=== PATIENT | female | born 1940 | race Caucasian/White ===

== ENCOUNTER → 2017-06-22 | Outpatient (CLI) | payer MEDICARE, BC ==
[2017-06-22 10:41] LABS: Basophils # (A) 0.1 k/uL (0-0.2); Basophils % (A) 1 %; CH 31.2; CHCM 32.7; Eosinophils # (A) 0.2 k/uL (0-0.7); Eosinophils % (A) 3 %; HCT 43.6 % (34.0-46.0); HDW 2.45; HGB 13.5 gm/dL (11.4-16.0); Luc % (Auto) 3; Lymphocytes # (A) 2.7 k/uL (1.0-4.8); Lymphocytes % (A) 37 %; MCH 29.8 pg (25.0-35.0); MCHC 31.1 g/dL (31.0-37.0); MCV 95.9 fL (80.0-100.0); Mean Platelet Volume 7.4; Monocytes # (A) 0.5 k/uL (0-1.0); Monocytes % (A) 6 %; Neutrophils # (A) 3.6 k/uL (1.3-7.7); Neutrophils % (A) 50 %; RBC 4.54 m/uL (3.80-5.40); RDW 13.3 % (11.5-15.5); WBC 7.1 k/uL (3.8-10.6); WBC (Perox) 7.37
[2017-06-22 10:46] LABS: ALT 29 U/L (9-52); AST 21 U/L (14-36); Alkaline Phosphatase 85 U/L (38-126); Anion Gap 7 mmol/L; Blood Urea Nitrogen 12 mg/dL (7-17); Calcium 10.3 mg/dL (8.4-10.2); Carbon Dioxide 31 mmol/L (22-30); Chloride 101 mmol/L (98-107); Cholesterol 193 mg/dL (<200); Glucose 99 mg/dL (74-99); HDL Cholesterol 84 mg/dL (40-60); Non-African American GFR(MDRD) >60 (>60 ml/min/1.73 sqM); Potassium 4.1 mmol/L (3.5-5.1); Sodium 139 mmol/L (137-145); Total Bilirubin 0.4 mg/dL (0.2-1.3); Total Protein 7.3 g/dL (6.3-8.2)
== END | disposition home or self-care (01) ==
LOC: LABWHC1 10:05
PROVIDERS: ATTEND Family Medicine
DX: I10 Essential (primary) hypertension (principal); E78.2 Mixed hyperlipidemia
CPT/HCPCS: 36415; 80053; 80061; 85025

== ENCOUNTER → 2018-04-13 | Outpatient (CLI) | payer MEDICARE, BC ==
--- NOTE | 2018-04-13 16:45 | US ---
EXAMINATION TYPE: US pelvis complete transvag DATE OF EXAM: 04/13/2018 COMPARISON: NONE CLINICAL HISTORY: 77-year-old female Abdominal Pain R10.9, bloating, feeling of fullness TECHNIQUE: Transabdominal sonographic images of the pelvis were acquired. Transvaginal sonographic i mages were medically necessary to better assess the following anatomy: uterus and ovaries Date of LMP: 24 years prior FINDINGS: EXAM MEASUREMENTS: Uterus: 4.9 x 2.4 x 3.5 cm Endometrial Stripe: 0.4 cm Right Ovary: not clearly identified, cyst seen in right adnexa possibly ovarian etiology. Left Ovary: not visualized due to atrophy/overlying bowel Sonography notes: Patient of large body habitus. 1. Uterus: Retroverted, heterogeneous, unable to adequately image the uterus transvaginally due to u terine position. 2. Endometrium: wnl 3. Right Ovary: Right adnexal cyst identified in post menopausal patient measuring 4.4 x 3.8 x 3.6cm . There is a thin internal septation. No internal nodularity identified. 4. Left Ovary: not visualized due to atrophy/overlying bowel 5. Bilateral Adnexa: right cyst seen 6. Posterior cul-de-sac: wnl IMPRESSION: Neither ovary could be clearly identified. There is a cystic lesion in the right adnexa probably of o varian origin measuring 4.4 cm containing a thin internal septation. Recommend 3-6 month initial foll ow-up interval. If stable at that time, annual surveillance can be performed per consensus guidelines .
--- NOTE | 2018-04-13 17:07 | US ---
EXAMINATION TYPE: US abdomen complete DATE OF EXAM: 04/13/2018 COMPARISON: None CLINICAL HISTORY: 77-year-old female Abdominal Pain R10.9, abdominal bloating, feeling of fullness FINDINGS: EXAM MEASUREMENTS: Liver Length: 16.1 cm Gallbladder Wall: 0.3 cm CBD: 0.4 cm Spleen: 8.1 cm Right Kidney: 10.2 x 3.4 x 5.2 cm Left Kidney: 9.7 x 4.8 x 4.7cm Skin Carver notes: Patient of large body habitus, technically difficult exam. Pancreas: Head partially obscured by overlying bowel gas Liver: Cyst seen on previous CT not seen by today's ultrasound, this could be due to technical limita tions Gallbladder: A couple nonmobile echogenic foci measuring 3 mm Evidence for sonographic De Oliveira's sign: no CBD: wnl Spleen: wnl Right Kidney: upper pole obscured by overlying bowel gas Left Kidney: upper pole obscured by overlying bowel gas No hydronephrosis on either side. Upper IVC: wnl Abd Aorta: wnl IMPRESSION: A couple nonmobile echogenic foci in the gallbladder measuring 3 mm suggestive of gallbladder wall po lyps. A 6 month follow-up can be considered as a conservative measure. Otherwise, some exam limitations; no specific abnormality seen.
== END | disposition home or self-care (01) ==
LOC: RADUSWWP 08:46
PROVIDERS: ATTEND Family Medicine
DX: N83.8 Other noninflammatory disorders of ovary, fallopian tube and broad ligament (principal); R93.5 Abnormal findings on diagnostic imaging of other abdominal regions, including retroperitoneum
CPT/HCPCS: 76700; 76830; 76856

== ENCOUNTER 2018-07-20 09:27 | Day surgery (SDC) | payer MEDICARE, BC ==
[2018-07-18 08:49] VITALS: BMI 32.5
[~2018-07-20 09:27] MED LIST: LACTATED RINGERS 1,000 ML IV SCH; LIDOCAINE 1% 20 ML VIAL (10MG/ML) FOR IV START INTRADERMA PRN
--- NOTE | 2018-07-20 10:12 | P.GSHP ---
History of Present Illness H&P Date: 07/20/18 CHIEF COMPLAINT: GERD HISTORY OF PRESENT ILLNESS: The patient is a 77-year-old female who presents reports gastroesophageal reflux disease. Upper endoscopy was offered for further evaluation and management. PAST MEDICAL HISTORY: Please see list. PAST SURGICAL HISTORY: Please see list. MEDICATIONS: Please see list. ALLERGIES: Please see list. SOCIAL HISTORY: No illicit drug use FAMILY HISTORY: No reports of Crohn disease or ulcerative colitis. REVIEW OF ORGAN SYSTEMS: CONSTITUTIONAL: No reports of fevers or chills. GI: Denies any blood in stools or constipation. PHYSICAL EXAM: VITAL SIGNS: Stable GENERAL: Well-developed and pleasant in no acute distress. HEENT: No scleral icterus. Extraocular movements grossly intact. Moist buccal mucosa. NECK: Supple without lymphadenopathy. CHEST: Unlabored respirations. Equal bilateral excursions. CARDIOVASCULAR: Regular rate and rhythm. Distal 2+ pulses. ABDOMEN: Soft, nondistended. MUSCULOSKELETAL: No clubbing, cyanosis, or edema. ASSESSMENT: 1. Gastroesophageal reflux disease PLAN: 1. Recommend proceeding with an upper endoscopy Past Medical History Past Medical History: Hyperlipidemia, Hypertension, Osteoarthritis (OA) Additional Past Medical History / Comment(s): BACK PAIN, ENVIRONMENTAL ALLERGIES., STATES HAVING STOMACH PAIN AFTER EATING. History of Any Multi-Drug Resistant Organisms: None Reported Past Surgical History: Joint Replacement, Orthopedic Surgery, Tubal Ligation Additional Past Surgical History / Comment(s): BILAT CATARACT SURGERY, CARPAL TUNNEL. LT CORNEAL TRANSPLANT X2. COLONOSCOPY. RT TKA. LT PARTIAL ROBIN Past Anesthesia/Blood Transfusion Reactions: No Reported Reaction Past Psychological History: No Psychological Hx Reported Smoking Status: Never smoker Past Alcohol Use History: None Reported Past Drug Use History: None Reported - Past Family History Mother Family Medical History: Unable to Obtain Additional Family Medical History / Comment(s): PT DOES NOT KNOW FAMILY HX. Medications and Allergies Home Medications Medication Instructions Recorded Confirmed Type Diltiazem HCl [Diltiazem ER (BID)] 90 mg PO BID 12/09/13 07/18/18 History Lisinopril-Hctz 20-25 mg 1 each PO DAILY 12/09/13 07/18/18 History [Zestoretic 20-25] Atorvastatin [Lipitor] 10 mg PO HS 07/18/18 07/18/18 History Cetirizine HCl 10 mg PO HS PRN 07/18/18 07/18/18 History HYDROcodone/APAP 5-325MG [[place] 1 tab PO Q6HR PRN 07/18/18 07/18/18 History 5-325] Inulin/Chromium Picolinate [Fiber 2 each PO DAILY 07/18/18 07/18/18 History Gummies Chew] Loratadine 10 mg PO DAILY PRN 07/18/18 07/18/18 History Sinus Otc 1 tab PO DAILY PRN 07/18/18 History Sodium Chloride 5% Ophth Soln 1 drops RIGHT EYE BID 07/18/18 07/18/18 History [Jose Angel 128] prednisoLONE ACETATE 1% OPHTH 1 drops LEFT EYE DIRECTED 07/18/18 07/18/18 History [Pred Forte 1%] Allergies Allergy/AdvReac Type Severity Reaction Status Date / Time Iodinated Contrast- Oral and AdvReac Nausea & Verified 07/18/18 08:19 IV Dye Vomiting [Iodinated Contrast Media - IV Dye]
[2018-07-20 10:54] VITALS: TEMP 98.4
[2018-07-20] MEDS ORDERED: PROPOFOL 10 MG/ML 20 ML VIAL IV ONE (12:16)
[2018-07-20] MEDS ORDERED: LIDOCAINE 1% INJ 10MG/ML (20 ML MDV) ONE (12:16)
--- NOTE | 2018-07-20 12:32 | P.PCN ---
Date of Procedure: 07/20/18 Description of Procedure: PREOPERATIVE DIAGNOSIS: Gastroesophageal reflux disease. POSTOPERATIVE DIAGNOSIS: Gastritis. Gastroesophageal reflux disease. Diaphragmatic hiatal hernia OPERATION: Esophagogastroduodenoscopy with biopsies along antrum. SURGEON: Eloisa Bennett MD ANESTHESIA: MAC. INDICATIONS: The patient is a 77-year-old female who presents with a history of reflux disease. Benefits and risks of the procedure were described. Informed consent was obtained. DESCRIPTION: The patient was brought into the endoscopy suite and laid in the left lateral decubitus position. An Olympus gastroscope was passed along the posterior oropharynx down to the distal esophagus where the squamocolumnar junction was encountered at 36 cm from the incisors. The stomach was entered and no bile reflux was found. Additional findings are listed below. Biopsies with cold forceps were obtained of the antrum. The first through third portion of the duodenum was examined and unremarkable. Retroflexion of the scope confirmed Hill grade 4 lower esophageal valve. The squamocolumnar junction demonstrated LA grade A erosive esophagitis. The stomach was desufflated. The patient tolerated the procedure well. FINDINGS: Squamocolumnar junction 36 cm from the incisors. Diaphragmatic hiatus at 40 cm. Hiatal hernia, 4 cm Hill grade 4 lower esophageal valve. LA grade A erosive esophagitis. No active duodenitis. Mild superficial chronic gastritis RECOMMENDATIONS: Upper endoscopy as needed.
[2018-07-20 12:37] VITALS: RESP 16
[2018-07-20 12:51] VITALS: BP 164/79; PULSE 75
== END 2018-07-20 13:04 | disposition home or self-care (01) ==
LOC: ORWHC2ENDO 09:27
PROVIDERS: ATTEND Surgery Plastic and Reconstructive Surgery
DX: K29.30 Chronic superficial gastritis without bleeding (principal); K21.0 Gastro-esophageal reflux disease with esophagitis; K22.10 Ulcer of esophagus without bleeding; K44.9 Diaphragmatic hernia without obstruction or gangrene; E78.5 Hyperlipidemia, unspecified; I10 Essential (primary) hypertension; M19.90 Unspecified osteoarthritis, unspecified site; M54.9 Dorsalgia, unspecified; Z96.651 Presence of right artificial knee joint; Z96.642 Presence of left artificial hip joint; Z94.7 Corneal transplant status; Z79.899 Other long term (current) drug therapy; Z91.041 Radiographic dye allergy status; Z88.1 Allergy status to other antibiotic agents
CPT/HCPCS: 88305; 88342; 43239; J2001; J2704

== ENCOUNTER → 2020-04-11 | Outpatient (CLI) | payer MEDICARE, BC ==
[2020-04-11 14:34] LABS: ALT 13 U/L (4-34); AST 24 U/L (14-36); African American GFR (CKD) >90 (>60 ml/min/1.73 sqM); Albumin 4.3 g/dL (3.5-5.0); Alkaline Phosphatase 115 U/L (38-126); Anion Gap 7 mmol/L; Blood Urea Nitrogen 14 mg/dL (7-17); Carbon Dioxide 29 mmol/L (22-30); Chloride 101 mmol/L (98-107); Glucose 99 mg/dL (74-99); Non-African American GFR(CKD) 81 (>60 ml/min/1.73 sqM); Potassium 4.1 mmol/L (3.5-5.1); Sodium 137 mmol/L (137-145); Total Bilirubin 0.5 mg/dL (0.2-1.3); Total Protein 6.8 g/dL (6.3-8.2)
[2020-04-11 14:44] LABS: INR 0.9 (<1.2); Partial Thromboplastin Time 22.5 sec (22.0-30.0); Prothrombin Time 9.7 sec (9.0-12.0)
[2020-04-11 14:48] LABS: Appearance,Urine Clear (Clear); Bilirubin,Urine Negative (Negative); Blood,Urine Negative (Negative); Color,Urine Yellow; Glucose,Urine (UA) Negative (Negative); Ketones,Urine Negative (Negative); Leukocyte Esterase,Urine Moderate (Negative); Mucus,Urine Rare /hpf; Nitrite,Urine Negative (Negative); PH, Urine 6.5 (5.0-8.0); Protein,Urine Negative (Negative); RBC,Urine 2 /hpf (0-5); Specific Gravity,Urine 1.016 (1.001-1.035); Squamous Epithelial Cell,Urine 1 /hpf (0-4); Urobilinogen,Urine <2.0 mg/dL (<2.0); WBC,Urine 10 /hpf (0-5)
[2020-04-11 15:02] LABS: HCT 41.3 % (34.0-46.0); HGB 13.1 gm/dL (11.4-16.0); MCHC 31.9 g/dL (31.0-37.0); MCV 94.3 fL (80.0-100.0); Mean Platelet Volume 9.1; Platelet Count 282 k/uL (150-450); RBC 4.38 m/uL (3.80-5.40); RDW 13.4 % (11.5-15.5); WBC 8.2 k/uL (3.8-10.6)
== END | disposition home or self-care (01) ==
LOC: LABPAT 13:08
PROVIDERS: ATTEND Orthopaedic Surgery
DX: Z01.812 Encounter for preprocedural laboratory examination (principal); Z01.818 Encounter for other preprocedural examination
CPT/HCPCS: 80053; 81001; 85027; 85610; 85730; 87070

== ENCOUNTER 2020-04-22 10:48 | Day surgery (SDC) | payer MEDICARE, BC ==
[2020-04-16 16:22] VITALS: BMI 32.2
[~2020-04-22 10:48] MED LIST changes: +ACETAMINOPHEN TAB 500 MG TAB PO ONE; +DEXAMETHASONE SOD PHOSPHATE 10 MG/ML 1 ML VIAL IV ONE; +GABAPENTIN 300 MG CAP PO ONE; +HYDROmorphone 0.5 MG/0.5 ML SYRINGE IVP PRN; -LIDOCAINE 1% 20 ML VIAL (10MG/ML) FOR IV START INTRADERMA PRN; +MELOXICAM 7.5 MG TAB PO ONE; +MIDAZOLAM 2 MG/2 ML VIAL IV PRN; +ONDANSETRON 4 MG/2 ML VIAL IVP ONE; +TRANEXAMIC ACID 1,000 MG in SODIUM CHLORIDE 0.9% 100 ML IVPB ONE
[2020-04-22] MEDS ORDERED: LIDOCAINE 1% (10MG/ML) FOR IV START INTRADERMA ONE (11:32)
[2020-04-22] MEDS ORDERED: ROPIVACAINE 0.2%-NS ON-Q PUMP 1,090 MG, EMPTY PAIN BALL 1 EACH MISCELLANE PRN (12:07)
--- NOTE | 2020-04-22 12:09 | P.ANPRN ---
Procedure Note - Anesthesia - Nerve Block Performed Left Adductor Canal Infusion Time Out Performed: Yes Date of Procedure: 04/22/20 Procedure Start Time: 11:46 Procedure Stop Time: 11:55 Location of Patient: PreOp Indication: Acute Post-Operative Pain, Requested by Surgeon Sedation Type: Sedate with meaningful contact maintained Preparation: Sterile Prep, Sterile Dressing Position: Supine Catheter: Indwelling Needle Types: Pajunk Needle Gauge: 21 Ultrasound used to visualize needle placement: Yes Ultrasound used to observe medication spread: Yes Blood Aspirated: No Pain Paresthesia on Injection Noted: No Resistance on Injection: Normal Image Stored and Saved: Yes Events: Uneventful and Well Tolerated (ropi .5% 20cc plus dexamethasone 4mg)
[2020-04-22] MEDS ORDERED: MIDAZOLAM 2 MG/2 ML VIAL ONE (12:31)
[2020-04-22] MEDS ORDERED: TRANEXAMIC ACID 1,000 MG/10 ML VIAL ONE (12:31)
[2020-04-22] MEDS ORDERED: PROPOFOL 10 MG/ML 20 ML VIAL IV ONE (12:31)
[2020-04-22] MEDS ORDERED: SODIUM CHLORIDE 0.9% 100 ML BAG ONE (12:31)
[2020-04-22] MEDS ORDERED: ceFAZolin 3,000 MG in SODIUM CHLORIDE 0.9% IRRIGATIO 3,000 ML IRRIGATION ONE (12:34)
[2020-04-22] MEDS: ROPIVACAINE 246.25 MG, EPINEPHrine 0.5 MG, KETOROLAC 30 MG, cloNIDine HCL/PF 80 MCG, WA... MISCELLANE ONE ×10 (13:05→13:42)
[2020-04-22] MEDS ORDERED: LACTATED RINGERS 1,000 ML IV ONE (13:26)
--- NOTE | 2020-04-22 14:18 | P.OP ---
Date of Procedure: 04/22/20 Procedure(s) Performed: PREOPERATIVE DIAGNOSIS: Left knee severe osteoarthritis with genu varum POSTOPERATIVE DIAGNOSIS: Left knee severe osteoarthritis with genu varum OPERATION: Left knee cemented total replacement arthroplasty. ANESTHESIA: Spinal ESTIMATED BLOOD LOSS: 100 ml. CLOTH LAYER: Sharla Perez PA-C (assistance with: patient positioning, retraction, exposure, hemostasis, leg positioning, implantation, irrigation, closure, dressing) COMPLICATIONS: None apparent. COMPONENTS IMPLANTED: Persona system from [employer] INDICATIONS: Mrs. Michel is a 79 year old female with a history of left knee osteoarthritis. Conservative treatment has been tried and has been unsuccessful in controlling symptoms adequately. The operation of knee replacement has been discussed at length in the office, as well as potential risks and complications. These are inclusive of, but not limited to: bleeding, infection, scarring, discomfort, blood vessel and nerve damage, need for further surgery, failure to relieve symptoms, persistence, recurrence, or worsening of problems, loosening, dislocation, wear, blood clot, pulmonary embolism, , gait dysfunction, stiffness, and other risks as discussed in the office. The patient elects to proceed and the consent form has been signed. PROCEDURE: The patient was taken to the operating room and positioned on the operating room table in the supine position. Anesthesia was initiated. Care was taken to make sure that all pressure points were adequately padded. The operative lower extremity was prepped and draped in the usual aseptic fashion using ChloraPrep. Ioban drape was used for the case and the patient received intravenous antibiotics within one hour of the incision. A pneumotourniquet and leg haddad were used for the case. The limb was exsanguinated with an Esmarch bandage and the tourniquet was inflated to 350 mmHg. Time-out was called confirming the patient's identity, side, procedure and administration of antibiotics and tranexamic acid, 1 g IV. The incision was then created midline directly over the knee, carried down through skin and into the subcutaneous tissues and down to fascia. Full thickness subcutaneous medial flap was developed. Medial parapatellar arthrotomy was performed and the interior of the knee was inspected. There was end-stage osteoarthritis of the knee with a mild to moderate genu varum type deformity. The fat pad was excised and proximal medial release on the tibia was completed using meticulous dissection and a curved osteotome. The anterior cruciate ligament was taken down. Note was made of significant attrition of the anterior and significant degenerative appearance of the posterior cruciate ligaments. The exposure was excellent. The knee was flexed 90 degrees and the patella was everted. A spot was chosen on the femur approximately 1 cm anterior to the posterior cruciate ligament insertion and an intramedullary hole was created within the femur. The intramedullary guide was then set to 5 degrees of valgus. The distal cutting block was attached and pinned into position. An appropriate amount of distal femoral resection was set. The oscillating saw was then used to make the distal femoral cut. This cut was confirmed to be flat with the flat end of an osteotome. The retractors were placed around the tibia and the tibial surface was addressed. The angle and depth of resection was adjusted using an extramedullary cutting guide. The guide had a built-in 3 degree posterior slope cut. Once the cutting guide was adjusted appropriately and in line with the axis of the tibia and confirmed to be in good position in relation to the second metatarsal and transmalleolar axis, the tibial cut was then created with protection of the posterior neurovascular structures and the collateral ligaments. The tibial cut surface was removed and sized. Femoral sizing was then accomplished using anterior referencing. Care was taken to analyze the posterior condyles for signs of deficiency or severe wear, and adjustments to the guide were made, as appropriate. 3 degree external rotation pins were placed. The cutting jig for the femur was applied to these pins. The planned cuts were further analyzed prior to performing them with the oscillating saw. No femoral notching was produced. Bone fragments were removed and the cut surfaces were finished, as necessary, with a reciprocating saw. Spacer block technique was then used to confirm that the flexion and extension gaps were equal. Soft tissue releases and adjustment of the tibial and/or femoral cuts were made, as necessary, until the gaps were equal. This included release of the posterior cruciate ligament, which was tight in this patient. The femur was then further finished for a posterior cruciate ligament substituting component. Patellar resurfacing was performed using a reamer. The size of the required patellar component was estimated and the patellar surface was then reamed down to a residual thickness which would recreate the [place] thickness with the component. The exact placement of the patellar component was adjusted for position based on preoperative x-rays and intraoperative findings. Prior to placing trial components, anesthetic solution consisting of ropivicaine with epinephrine, ketorolac, and clonidine was injected carefully and methodically in a grid pattern using aspiration technique into the soft tissue around the knee circumferentially, starting with the deeper tissues first and progressing to fascia, and then finally the skin/subcutaneous tissue. Particular care was taken when injecting the posterior capsule. The trial components were inserted. The tibial tray was allowed to self center and the patella was noted to track very well. The position of the tibial component was marked and the tibia was then finished for a stemmed tibial component. Cement was mixed on the back table and applied to the final components. Trial components were removed and the cut surfaces of the bone were pulse lavaged thoroughly and dried. Cement was then applied to the tibial jordan face and pressurized into the surface using finger pressurization technique. The tibial component was then applied and excess cement was removed after it was impacted securely and noted to be flush with the cut surface. In similar fashion, the cement was applied to the cut femoral surface, pressurized in using finger pressurization and the component was impacted into place. Excess cement was removed. The polyethylene spacer was then implanted and locked into position. The patellar component was then applied in similar technique and a patellar clamp was used to hold the patella in place as the cement hardened. Once the cement had fully hardened, the knee was reinspected. Any other cement extrusion was removed and final kinematic testing showed range of motion from 0 to 130 degrees with excellent stability, both medially and laterally and appropriate alignment of the leg. Patellar tracking was excellent. The knee was then thoroughly pulse lavaged with normal saline. The tourniquet wa s deflated and hemostasis was obtained with electrocautery and IV tranexamic acid, 1 g given prior to inflation of the tourniquet and another gram given at the time of closure. Closure was with #2 Ethibond in the fascia and supplemented with #2 Quill, 2-0 Vicryl suture was used for the subcutaneous tissues and 3-0 Quill for the skin. Dermabond/Steri-Strips were then applied. A lightly compressive dressing was applied using Webril and an Chele wrap. The patient was then transferred to stretcher and taken to the recovery room in stable condition. Sponge and needle counts were correct.
[2020-04-22] MEDS ORDERED: ONDANSETRON 4 MG/2 ML VIAL IVP PRN (14:36)
[2020-04-22] MEDS ORDERED: NA PHOS,M-B/NA PHOS,DI-BA 133 ML ENEMA RECTAL PRN (14:36)
[2020-04-22] MEDS ORDERED: TEMAZEPAM 15 MG CAP PO PRN (14:36)
[2020-04-22] MEDS ORDERED: HYDROcodone/APAP 7.5-325MG 1 EACH TAB PO PRN (14:36)
[2020-04-22] MEDS ORDERED: NALOXONE 0.4 MG/ML 1 ML VIAL IV PRN (14:36)
[2020-04-22] MEDS ORDERED: HYDROmorphone 0.5 MG/0.5 ML SYRINGE IVP PRN ×3 (14:36)
[2020-04-22] MEDS ORDERED: bisacodyL 10 MG SUPP RECTAL PRN (14:36)
[2020-04-22] MEDS ORDERED: hydrOXYzine pamoate 25 MG CAP PO PRN (14:36)
[2020-04-22] MEDS ORDERED: MAGNESIUM HYDROXIDE 2,400 MG/10 ML CUP PO PRN (14:36)
[2020-04-22] MEDS ORDERED: HYDROcodone/APAP 5-325MG 1 EACH TAB PO PRN (14:36)
[2020-04-22] MEDS ORDERED: LACTATED RINGERS 1,000 ML IV SCH (14:45)
--- NOTE | 2020-04-22 15:01 | XR ---
EXAMINATION TYPE: XR knee limited LT DATE OF EXAM: 04/22/2020 CLINICAL HISTORY: Left knee pain and arthritis status post total knee replacement. TECHNIQUE: Portable AP and crosstable lateral views of the left knee are obtained immediately postop eratively. COMPARISON: None FINDINGS: Metallic hardware from total left knee arthroplasty is seen and appears satisfactory in al ignment and position. There is evidence of recent surgery with diffuse subcutaneous gas and cutaneou s irregularity. There is no unexpected radiopaque foreign body. IMPRESSION: METALLIC HARDWARE FROM TOTAL LEFT KNEE ARTHROPLASTY IS SATISFACTORY IN ALIGNMENT.
[2020-04-22] MEDS ORDERED: KETOROLAC 15 MG/ML 1 ML VIAL IVP ONE (15:29)
[2020-04-22 16:30] VITALS: RESP 18
[2020-04-22 17:24] VITALS: BP 144/72; PULSE 103; TEMP 97.5
[2020-04-22] MEDS ORDERED: ASPIRIN 81 MG PO SCH (21:00)
[2020-04-22] MEDS ORDERED: SODIUM CHLORIDE 5% OPHTH DROPS 15 ML BTL RIGHT EYE SCH (21:00)
[2020-04-22] MEDS ORDERED: SENNOSIDES-DOCUSATE SODIUM 1 EACH TAB PO SCH (21:00)
[2020-04-22] MEDS ORDERED: ATORVASTATIN 10 MG TAB PO SCH (21:00)
[2020-04-22] MEDS ORDERED: DILTIAZEM ORAL 30 MG TAB PO SCH (21:00)
[2020-04-23] MEDS ORDERED: MELOXICAM 7.5 MG TAB PO SCH (09:00)
[2020-04-23] MEDS ORDERED: LISINOPRIL-HCTZ 20-25 MG 1 EACH TAB PO SCH (09:00)
[2020-04-24] MEDS ORDERED: prednisoLONE ACETATE 1% OPHTH DROPS 5 ML BTL LEFT EYE SCH (09:00)
== END 2020-04-22 17:42 | disposition home health service (06) ==
LOC: OR 10:48 → 4SSUR 16:11 → OR 17:42
PROVIDERS: ATTEND Orthopaedic Surgery
DX: M17.12 Unilateral primary osteoarthritis, left knee (principal); M21.162 Varus deformity, not elsewhere classified, left knee; I10 Essential (primary) hypertension; E78.2 Mixed hyperlipidemia; K57.90 Diverticulosis of intestine, part unspecified, without perforation or abscess without bleeding; Z97.3 Presence of spectacles and contact lenses; Z91.041 Radiographic dye allergy status; J30.2 Other seasonal allergic rhinitis; Z96.651 Presence of right artificial knee joint; Z98.51 Tubal ligation status; Z98.42 Cataract extraction status, left eye; Z98.41 Cataract extraction status, right eye; Z98.890 Other specified postprocedural states; K21.9 Gastro-esophageal reflux disease without esophagitis; K44.9 Diaphragmatic hernia without obstruction or gangrene; Z96.642 Presence of left artificial hip joint; Z83.1 Family history of other infectious and parasitic diseases; Z79.51 Long term (current) use of inhaled steroids; Z79.899 Other long term (current) drug therapy; Z88.1 Allergy status to other antibiotic agents
CPT/HCPCS: 64448; 76942; 88300; 73560; 27447; C1713; C1776; J2250; J0171; J1100; J0690 ×2; J2405; J1885 ×2; J2795 ×2; J0735; J1170

== ENCOUNTER → 2023-02-18 | Outpatient (CLI) | payer MEDICARE, BC ==
[2023-02-18 11:33] VITALS: BP 162/78; PULSE 82; RESP 18
--- NOTE | 2023-02-18 14:35 | P.PAINPG ---
PQRS Measure Charge Sheet Comment: HISTORY OF PRESENT ILLNESS: 82 yr old female w at side as a referral from Dr Park presents today w severe and chronic LBP secondary to DDD, spondylosis and facet arthropathy without myelopathy for evaluation. Pt states pain level is provoked at 10/10 in intensity, constant, localized in the mid to lower lumbar spine, achy in character w shooting pain towards the L Knee. Pain is provoked by weight bearing activity. Pain is alleviated by medications (Aleve), topical, heat, PT eyars ago, physician guided home exercises 3 times weekly since 2019, repositioning and rest. Oswestry axial pain score at 26. PMH: OA, Hyperlipidemia, HTN, OA PSH: Colonoscopy (2013), EGD w Biopsy (2017), L Total Knee Arthroplasty (2019), R Total Knee Arthroplasty, Tubal Ligation, BL Cataract Surgery, Carpal Tunnel Release, L Corneal Transplant x2 SH: Negative x3 FH: Unaware of family history All: See list Meds: See list REVIEW OF ORGAN SYSTEMS: CONSTITUTIONAL: No fevers or chills. No recent weight loss. NEUROLOGICAL: + numbness and tingling along the distal extremities. No seizure disorders or headaches. MUSCULOSKELETAL: + pain PSYCHIATRIC: Denies current depression or suicidal thoughts. Physical Examinations : Constitutional : Cooperative , not in acute distress . Neurologic : Cranial nerve II to XII intact. No focal neurological deficits. Psychiatric : alert & oriented x 3. Matching mood & appropriate affect. Judgment & insight intact. Musculoskeletal : Cervical Spine Motor strength in the deltoid and biceps: Normal right side. Normal Left side Motor strength biceps and the wrist extensors: Normal right side . Normal left side Motor strength in the triceps muscle: Normal right side. Normal left side Deep tendon reflexes: Normal at the biceps. Normal at Brachioradialis. Normal at triceps Vertebral body tenderness to deep palpation Cervical facet loading test: positive bilaterally Spurling test: positive bilaterally Neck distraction test: positive bilaterally Kellee sign: positive bilaterally Lumbar spine Motor strength lower extremities ,thigh and legs 5/5 Right side , 5/5 Left side Deep tendon reflexes : Normal Knee Jerk. Normal Ankle Jerk Vertebral body tenderness over L5 Peterson Test positive Lumbar facet Loading Test: positive Right / positive Left Range of motion of the lumbar spine Flexion 30 degrees, extension 10 degrees Straight Leg Raise test: Left/ Right positive at 35 degrees Britton test: positive right / positive left. Severe tenderness over the Sacroiliac joint on the Right / Left sides Gaenslen test: positive bilaterally Seated flexion test: positive bilaterally. Sacral spine : Severe tenderness over the Sacroiliac joint: right side / left side Range of motion: Flexion of the lumbar spine <60 degrees Range of motion: Extension of the lumbar spine <20 degrees Gaenslen's Test positive Kenneth's Test positive Britton test: positive right side / left side Thigh Thrust Test Sacral Thrust Test Imaging: MRI non contrast of the lumbar spine from 01/08/23 reviewed Assessment/ Plan : Lumbar DDD Recommendation of ELDER L4-L5. May need a series of injections for optimal pain relief. Risks, benefits of procedure discussed and patient verbalized understanding. Admits to aspirin or anti- coagulant use or medical history of diabetes. Protocol for discontinuation/ continuation of medications kailee procedure discussed. Minimal anesthesia provided, if clinically indicated, consisting of Versed and Fentanyl. All questions answered. I have spent greater than 30 minutes on patient care today. Dr Pyle was available by phone for the evaluation of this patient. The time was used to review the medical records including relevant urine studies and Prescription history (MAPs), review of the available imaging, evaluation and examination of the patient, coordination of care with the medical staff and if applicable referring physicians, as well as creation of the medical record PQRS Narrative: Smoking Status Never smoker Home Medications: Ambulatory Orders Lisinopril-Hctz 20-25 mg [Zestoretic 20-25] 1 each PO DAILY 12/09/13 dilTIAZem HCL [Diltiazem ER (BID)] 90 mg PO BID 12/09/13 Atorvastatin [Lipitor] 10 mg PO HS 07/18/18 Sodium Chloride 5% Ophth Soln [Jose Angel 128] 1 drops RIGHT EYE BID 07/18/18 prednisoLONE ACETATE 1% OPHTH [Pred Forte 1%] 1 drops LEFT EYE Q48H 07/18/18 Aspirin [Adult Low Dose Aspirin EC] 81 mg PO BID #1 tablet. 04/22/20 HYDROcodone/APAP 7.5-325MG [[place] 7.5-325] 1 - 2 tab PO Q4-6H PRN #42 tab 04/22/20 Meloxicam [Mobic] 1 - 2 tab PO DAILY PRN #30 tab 04/22/20 Sennosides-Docusate Sodium [Senokot-S] 1 tab PO BID #60 tablet 04/22/20 hydrOXYzine pamoate [Vistaril] 25 mg PO Q4-6H #30 capsule 04/22/20 HYDROcodone/APAP 7.5-325MG [[place] 7.5-325] 1 - 2 tab PO Q6HR PRN #42 tab 04/23/20 Controlled Substance Measures - Controlled Substance Measures Is patient prescribed a controlled substance at discharge?: No
== END ==
LOC: PNWHC3 10:40
PROVIDERS: ATTEND Specialist
DX: M51.36 Other intervertebral disc degeneration, lumbar region (principal); M19.90 Unspecified osteoarthritis, unspecified site; E78.5 Hyperlipidemia, unspecified; I10 Essential (primary) hypertension; Z79.82 Long term (current) use of aspirin; Z91.041 Radiographic dye allergy status
CPT/HCPCS: 99211

== ENCOUNTER 2023-03-04 07:15 | Day surgery (SDC) | payer MEDICARE, BC ==
[2023-03-01 16:01] VITALS: BMI 31.8
[~2023-03-04 07:15] MED LIST changes: -ACETAMINOPHEN TAB 500 MG TAB PO ONE; -DEXAMETHASONE SOD PHOSPHATE 10 MG/ML 1 ML VIAL IV ONE; -GABAPENTIN 300 MG CAP PO ONE; -HYDROmorphone 0.5 MG/0.5 ML SYRINGE IVP PRN; -MELOXICAM 7.5 MG TAB PO ONE; -MIDAZOLAM 2 MG/2 ML VIAL IV PRN; -ONDANSETRON 4 MG/2 ML VIAL IVP ONE; -TRANEXAMIC ACID 1,000 MG in SODIUM CHLORIDE 0.9% 100 ML IVPB ONE
[2023-03-04 07:47] VITALS: RESP 16; TEMP 97.5
[2023-03-04] MEDS ORDERED: methylPREDNISolone ACETATE 40 MG/ML 1 ML VIAL ONE (08:03)
--- NOTE | 2023-03-04 08:11 | P.PCN ---
Date of Procedure: 03/04/23 Procedure(s) Performed: PREOPERATIVE DIAGNOSIS: 1- Lumbar Degenerative Disc Diseases 2-Lumbar spondylosis POSTOPERATIVE DIAGNOSIS: 1-lumbar degenerative disc disease. 2-lumbar spondylosis . PROCEDURE 1. Lumbar epidural steroid injection under fluoroscopic guidance at the L4-5 level. (Fluoroscopy imaging was available in radiology department) ANESTHESIA: Lidocaine 1% 3 and then only. EBL: Minimal PROCEDURE INDICATION: The patient with low back pain and radiculitis symptoms unresponsive to conservative treatment. Fluoroscopy was used to optimize visualization of the needle placement and to maximize safety. PROCEDURE DESCRIPTION / TECHNIQUE: The patient was seen and identified in the preoperative area. Risks, benefits, complications including but not limited to infections ,bleeding ,allergic reaction to the medications ,nerve damage and not complete pain releife , and alternatives were discussed with the patient. The patient agreed to proceed with the procedure and signed the consent, and vital signs were stable. Patient was taken to the OR and time out was completed. The patient was placed in the prone position on procedure table and a pillow was placed under the abdomen to reduce lumbar lordosis. The lumbosacral area was prepped and draped in the usual sterile fashion.ere closely monitored during the procedure. Vital signs was monitered during the entire procedure. Using anterior-posterior fluoroscopy, the L5-S1 interlaminar space was i dentified and the skin over this site was marked and then infiltrated with 1% lidocaine subcutaneously. Subsequently, a 20-gauge Tuohy epidural needle was inserted and advanced toward the epidural space using the ``Loss of resistance technique and guided by AP and lateral fluoroscopy., after negative aspiration for blood and CSF and in the absence of paresthesias. Again after negative aspiration, a 6 ml mixture containing 40 mg of Depo-medrol ( Preservetive Free ), and 2 ml of preservative free Normal Saline, and 2 ml of preservative free lidocaine 1% solution was injected . Needle was withdrawn intact, skin was cleansed, and bandages were applied. COMPLICATIONS: None DISPOSITION / PLANS: The patient was placed in a supine position and transferred to the recovery area in a stable condition for observation. There was no evidence of lower extremity motor or sensory deficit after the procedure. Patient was discharged from the recovery room after meeting discharge criteria. Home discharge instructions were given to the patient by the staff. The patient was reexamined prior to discharge. The patient will schedule a follow up in the clinic in 2-4 weeks. note= Isovue was not injected because patient had an ALLERGY to contrast media
[2023-03-04 08:13] VITALS: BP 147/70; PULSE 74
--- NOTE | 2023-03-04 10:15 | FL ---
Intraoperative/procedural fluoroscopic services were provided. Total fluoroscopy time is 6 seconds wi th a total of 1 submitted images to PACS. Please see the operative/procedural note for further detail s. DAP: [id number] mGym2
== END 2023-03-04 08:24 | disposition home or self-care (01) ==
LOC: ORPAIN 07:15
PROVIDERS: ATTEND Specialist
DX: M51.16 Intervertebral disc disorders with radiculopathy, lumbar region (principal); M47.26 Other spondylosis with radiculopathy, lumbar region; Z91.041 Radiographic dye allergy status
CPT/HCPCS: 62323; J1030

== ENCOUNTER → 2023-03-25 | Outpatient (CLI) | payer MEDICARE, BC ==
[2023-03-25 12:51] VITALS: BP 186/79; PULSE 81; RESP 15; TEMP 98.3
--- NOTE | 2023-03-25 15:49 | P.PAINPG ---
PQRS Measure Charge Sheet Comment: HISTORY OF PRESENT ILLNESS: 82 yr old female w at side presents today w severe and chronic LBP secondary to DDD, spondylosis and facet arthropathy without myelopathy for evaluation s/p ELDER L4-L5 #1. Pt states she experienced 90 % pain relief x 3 wks s/p procedure. Pt states pain level is provoked at 1/10 in intensity. Pain is alleviated by injections, medications, topical, heat, PT eyars ago, physician guided home exercises 3 times weekly since 2019, repositioning and rest. Oswestry axial pain score at 26. Interventional procedures include ELDER L4-L5 x1 Medications include Aleve REVIEW OF ORGAN SYSTEMS: CONSTITUTIONAL: No fevers or chills. No recent weight loss. NEUROLOGICAL: + numbness and tingling along the distal extremities. No seizure disorders or headaches. MUSCULOSKELETAL: + pain PSYCHIATRIC: Denies current depression or suicidal thoughts. Physical Examinations : Constitutional : Cooperative , not in acute distress . Neurologic : Cranial nerve II to XII intact. No focal neurological deficits. Psychiatric : alert & oriented x 3. Matching mood & appropriate affect. Judgment & insight intact. Musculoskeletal : Cervical Spine Motor strength in the deltoid and biceps: Normal right side. Normal Left side Motor strength biceps and the wrist extensors: Normal right side . Normal left side Motor strength in the triceps muscle: Normal right side. Normal left side Deep tendon reflexes: Normal at the biceps. Normal at Brachioradialis. Normal at triceps Vertebral body tenderness to deep palpation Cervical facet loading test: positive bilaterally Spurling test: positive bilaterally Neck distraction test: positive bilaterally Kellee sign: positive bilaterally Lumbar spine Motor strength lower extremities ,thigh and legs 5/5 Right side , 5/5 Left side Deep tendon reflexes : Normal Knee Jerk. Normal Ankle Jerk Vertebral body tenderness over L5 Peterson Test positive Lumbar facet Loading Test: positive Right / positive Left Range of motion of the lumbar spine Flexion 30 degrees, extension 10 degrees Straight Leg Raise test: Left/ Right positive at 35 degrees Britton test: positive right / positive left. Severe tenderness over the Sacroiliac joint on the Right / Left sides Gaenslen test: positive bilaterally Seated flexion test: positive bilaterally. Sacral spine : Severe tenderness over the Sacroiliac joint: right side / left side Range of motion: Flexion of the lumbar spine <60 degrees Range of motion: Extension of the lumbar spine <20 degrees Gaenslen's Test positive Kenneth's Test positive Britton test: positive right side / left side Thigh Thrust Test Sacral Thrust Test Imaging: MRI non contrast of the lumbar spine from 01/08/23 reviewed Assessment/ Plan : Lumbar DDD Recommendation of medication management Mobic 7.5mg #30 1 RF. Use, side effects, adverse reactions and safe storage discussed. Pt and at side acknowledged understanding. May need a series of injections for optimal pain relief. All questions answered. I have spent greater than 30 minutes on patient care today. Dr Pyle was available by phone for the evaluation of this patient. The time was used to review the medical records including relevant urine studies and Prescription history (MAPs), review of the available imaging, evaluation and examination of the patient, coordination of care with the medical staff and if applicable referring physicians, as well as creation of the medical record PQRS Narrative: Smoking Status Never smoker Hx Alcohol Use (MH) No Home Medications: Ambulatory Orders Lisinopril-Hctz 20-25 mg [Zestoretic 20-25] 1 each PO DAILY 12/09/13 dilTIAZem HCL [Diltiazem ER (BID)] 90 mg PO BID 12/09/13 Atorvastatin [Lipitor] 10 mg PO HS 07/18/18 Sodium Chloride 5% Ophth Soln [Jose Angel 128] 1 drops RIGHT EYE BID 07/18/18 prednisoLONE ACETATE 1% OPHTH [Pred Forte 1%] 1 drops LEFT EYE Q48H 07/18/18 Controlled Substance Measures - Controlled Substance Measures Is patient prescribed a controlled substance at discharge?: No
== END ==
LOC: PNWHC3 12:17
PROVIDERS: ATTEND Specialist
DX: M51.36 Other intervertebral disc degeneration, lumbar region (principal); Z91.041 Radiographic dye allergy status
CPT/HCPCS: 99211

== ENCOUNTER 2024-07-21 13:27 | Emergency (ER) | payer MEDICARE, BC ==
--- NOTE | 2024-07-21 14:02 | ED ---
Fall HPI - General Chief Complaint: Fall Stated Complaint: Fall Time Seen by Provider: 07/21/24 13:59 Source: patient, EMS, RN notes reviewed, old records reviewed Mode of arrival: EMS Limitations: no limitations - History of Present Illness Initial Comments: 83-year-old female presented to ER via EMS for evaluation of fall. Patient's , at bedside, aiding in HPI. Patient's reports that she went downstairs and he did not hear from her for about 15 to 20 minutes. He states he got up and found without of the stairs. He then called EMS for assistance. This occurred around 1230/1 PM. Per EMS, patient was found at the bottom of the staircase. They state there was 10 stairs a platform and then 3 stairs again. Patient was found at the bottom of the 3 stairs. They report it did not appear as if she fell down about 10 stairs. They also report a 1.5 cm laceration to her scalp. Patient is unaware of how she fell or what led her to fall. She does have a history of atrial fibrillation but denies blood thinner use. She is currently complaining of right shoulder pain. She denies any current dizziness, lightheadedness, double blurry vision, nausea or vomiting. Patient denies chest pain, shortness of breath, abdominal pain, constipation/diarrhea, fevers, chills or peripheral edema. - Related Data Home Medications Medication Instructions Recorded Confirmed Lisinopril-Hctz 20-25 mg 1 each PO DAILY 12/09/13 03/25/23 [Zestoretic 20-25] dilTIAZem HCL [Diltiazem ER (BID)] 90 mg PO BID 12/09/13 03/25/23 Atorvastatin [Lipitor] 10 mg PO HS 07/18/18 03/25/23 Sodium Chloride 5% Ophth Soln 1 drops RIGHT EYE BID 07/18/18 03/25/23 [Jose Angel 128] prednisoLONE ACETATE 1% OPHTH 1 drops LEFT EYE Q48H 07/18/18 03/25/23 [Pred Forte 1%] Previous Rx's Medication Instructions Recorded Meloxicam [Mobic] 7.5 mg PO DAILY 30 Days #30 tab 03/25/23 traMADol HCl [Ultram] 50 mg PO Q4HR PRN 3 Days #18 tab 04/07/23 Allergies Allergy/AdvReac Type Severity Reaction Status Date / Time Iodinated Contrast Media AdvReac Nausea & Verified 07/21/24 13:42 [Iodinated Contrast Media - Vomiting IV Dye] Review of Systems ROS Statement: Those systems with pertinent positive or pertinent negative responses have been documented in the HPI. ROS Other: All systems not noted in ROS Statement are negative. Past Medical History Past Medical History: Atrial Fibrillation, Hyperlipidemia, Hypertension, Osteoarthritis (OA) Additional Past Medical History / Comment(s): BACK PAIN, ENVIRONMENTAL ALLERGIES., OCCASIONAL VERTIGO, ECZEMA History of Any Multi-Drug Resistant Organisms: None Reported Past Surgical History: Joint Replacement, Orthopedic Surgery, Tubal Ligation Additional Past Surgical History / Comment(s): BILAT CATARACT SURGERY, CARPAL TUNNEL. LT CORNEAL TRANSPLANT X2. COLONOSCOPY. RT TKA, TOTAL LEFT KNEE. LT PARTIAL HIP Past Anesthesia/Blood Transfusion Reactions: No Reported Reaction Past Psychological History: No Psychological Hx Reported Smoking Status: Never smoker Past Alcohol Use History: None Reported Past Drug Use History: None Reported - Past Family History Mother Family Medical History: Unable to Obtain Additional Family Medical History / Comment(s): PT DOES NOT KNOW FAMILY HX. General Exam Limitations: no limitations General appearance: alert, in no apparent distress Head exam: Present: other (right parietal scalp laceration) Eye exam: Present: normal appearance, PERRL, EOMI. Absent: scleral icterus, conjunctival injection, periorbital swelling Pupils: Present: normal accommodation (3mm bilaterally) ENT exam: Present: normal exam, normal oropharynx, mucous membranes moist Neck exam: Present: normal inspection. Absent: tenderness, meningismus, lymph adenopathy Respiratory exam: Present: normal lung sounds bilaterally. Absent: respiratory distress, wheezes, rales, rhonchi, stridor Cardiovascular Exam: Present: regular rate, irregular rhythm, normal heart sounds GI/Abdominal exam: Present: soft, normal bowel sounds. Absent: distended, tenderness, guarding, rebound, rigid Extremities exam: Present: tenderness (Right AC joint. 2+ bilateral radial pulses. 2+ bilateral DP and PT pulse negative leg roll bilaterally.) Neurological exam: Present: alert, CN II-XII intact, other (Patient is ANO x 2) Course Vital Signs 07/21/24 07/21/24 07/21/24 13:37 14:00 14:50 Temperature 98 F Pulse Rate 90 93 88 Respiratory 20 20 20 Rate Blood Pressure 164/107 150/99 153/84 O2 Sat by Pulse 95 97 94 L Oximetry 07/21/24 15:55 Temperature 98.1 F Pulse Rate 95 Respiratory 17 Rate Blood Pressure 146/82 O2 Sat by Pulse 98 Oximetry - Reevaluation(s) Reevaluation #1: 07/21/24 15:44 Case discussed with [facility] Miller trauma surgeon, who advised on starting TXA. Case also discussed with Michael Li, neurosurgey, who accepted transfer. Medical Decision Making - Medical Decision Making Was pt. sent in by a medical professional or institution (, PA, [employer], urgent care, hospital, or group home...) When possible be specific @ -No Did you speak to anyone other than the patient for history (EMS, parent, family, police, friend...)? What history was obtained from this source @ -EMS and provided majority of HPI. As patient is unaware of events causing fall. Did you review nursing and triage notes (agree or disagree)? Why? @ -I reviewed and agree with nursing and triage notes Were old charts reviewed (outside hosp., previous admission, EMS record, old EKG, old radiological studies, urgent care reports/EKG's, group home records)? Report findings @ -No old charts were reviewed Differential Diagnosis (chest pain, altered mental status, abdominal pain women, abdominal pain men, vaginal bleeding, weakness, fever, dyspnea, syncope, headache, dizziness, GI bleed, back pain, seizure, CVA, palpatations, mental health, musculoskeletal)? @ -Fracture, dislocation, contusion, hematoma, intracranial hemorrhage, concussion, abrasion, laceration this list does not like to be all-inclusive EKG interpreted by me (3pts min.). @ -As above X-rays interpreted by me (1pt min.). @ -None done CT interpreted by me (1pt min.). @ -CT brain and C-spine showing acute left subdural hematoma overlying the left frontal and temporal convexities. No midline shift. Acute right parietal scalp hematoma with laceration. No evidence of cervical spine fracture or dislocation. U/S interpreted by me (1pt. min.). @ -None done What testing was considered but not performed or refused? (CT, X-rays, U/S, labs)? Why? @ -None What meds were considered but not given or refused? Why? @ -None Did you discuss the management of the patient with other professionals (professionals i.e. , TI[employer], [employer], lab, RT, psych nurse, social media strategist, vat washer, teacher, chief nursing officer, rn field case manager)? Give summary @ -Yes, case discussed with Michael Miller for transfer due to subdural hematoma. , trauma surgery, advised on TXA. Case discussed with [facility] Miller neurosurgery, Dr. Li, who accepted transfer. Was smoking cessation discussed for >3mins.? @ -No Was critical care preformed (if so, how long)? @ -Yes, 31 minutes Were there social determinants of health that impacted care today? How? (Homelessness, low income, unemployed, alcoholism, drug addiction, transportation, low edu. Level, literacy, decrease access to med. care, [facility], rehab)? @ -No Was there de-escalation of care discussed even if they declined (Discuss DNR or withdrawal of care, Hospice)? DNR status @ -No What co-morbidities impacted this encounter? (DM, HTN, Smoking, COPD, CAD, Cancer, CVA, ARF, Chemo, Hep., AIDS, mental health diagnosis, sleep apnea, morbid obesity)? @ -Atrial fibrillation no blood thinners, hypertension, hyperlipidemia Was patient admitted / discharged? Hospital course, mention meds given and route, prescriptions, significant lab abnormalities, going to OR and other pertinent info. @ -Transferred. 83-year-old female presented to the ER via EMS for evaluation of a fall. History and physical exam completed. Patient is hypertensive on arrival at 164/107 vitals otherwise stable. Patient AxO x 2. Pupils equal round reactive. Bilateral upper and lower extremities neurovascular intact. Tenderness to right AC joint. GCS 14. Syncopal workup will be obtained as patient is unaware of how she fell. CT brain and C-spine showed an acute left subdural hematoma overlying the left frontal and temporal convexities with no midline shift. Acute right parietal scalp hematoma with laceration. No evidence of cervical spine fracture or dislocation. Transfer was considered at that time to [facility] for further evaluation and treatment of subdural hematoma. Case was discussed with Dr. Ray, trauma surgery, and Dr. Li, neurosurgery, [facility] who accept transfer. Tetanus updated. Patient given 1500 mg of IV push Keppra and 1 g TXA (per trauma surgery [facility]) prior to transfer. Laboratory studies obtained showing a leukocytosis of 18.9 with a left shift. CMP unremarkable. PT 10.5, INR 0.9, APTT 19.1. Troponin 0.015. Viral swabs negative. Xrays pending. Laceration deferred to [facility] as patient is currently in a c-collar. Patient remained stable throughout ER stay and will be transferred via EMS to [facility]. Case was discussed with ED attending Dr. Denton. Undiagnosed new problem with uncertain prognosis? @ -No Drug Therapy requiring intensive monitoring for toxicity (Heparin, Nitro, Insulin, Cardizem)? @ -No Were any procedures done? @ -No Diagnosis/symptom? @ -Left subdural hematoma/fall/laceration Acute, or Chronic, or Acute on Chronic? @ -Acute Uncomplicated (without systemic symptoms) or Complicated (systemic symptoms)? @ -Complicated Side effects of treatment? @ -No Exacerbation, Progression, or Severe Exacerbation? @ -No Poses a threat to life or bodily function? How? (Chest pain, USA, MS, pneumonia, PE, COPD, DKA, ARF, appy, cholecystitis, CVA, Diverticulitis, Homicidal, Suicidal, threat to staff... and all critical care pts) @ -Yes, brain bleeds are life-threatening. - Lab Data Result diagrams: 07/21/24 14:34 07/21/24 14:34 Lab Results 07/21/24 07/21/24 07/21/24 Range/Units 14:34 14:34 14:34 WBC 18.9 H (3.8-10.6) k/uL RBC 3.93 (3.80-5.40) m/uL Hgb 12.2 (11.4-16.0) gm/dL Hct 37.2 (34.0-46.0) % MCV 94.6 (80.0-100.0) fL MCH 31.0 (25.0-35.0) pg MCHC 32.8 (31.0-37.0) g/dL RDW 13.3 (11.5-15.5) % Plt Count 276 (150-450) k/uL MPV 8.6 Neutrophils % 91 % Lymphocytes % 3 % Monocytes % 5 % Eosinophils % 0 % Basophils % 0 % Neutrophils # 17.3 H (1.3-7.7) k/uL Lymphocytes # 0.6 L (1.0-4.8) k/uL Monocytes # 1.0 (0-1.0) k/uL Eosinophils # 0.0 (0-0.7) k/uL Basophils # 0.0 (0-0.2) k/uL PT (10.0-12.5) sec INR (<1.2) APTT (22.0-30.0) sec Sodium 135 L (137-145) mmol/L Potassium 3.7 (3.5-5.1) mmol/L Chloride 106 (98-107) mmol/L Carbon Dioxide 28 (22-30) mmol/L Anion Gap 1 mmol/L BUN 25 H (7-17) mg/dL Creatinine 0.59 (0.52-1.04) mg/dL Est GFR (CKD-EPI)AfAm >90 (>60 ml/min/1.73 sqM) Est GFR (CKD-EPI)NonAf 86 (>60 ml/min/1.73 sqM) Glucose 118 H (74-99) mg/dL Calcium 10.1 (8.4-10.2) mg/dL Magnesium 1.8 (1.6-2.3) mg/dL Total Bilirubin 0.4 (0.2-1.3) mg/dL AST 28 (14-36) U/L ALT 19 (4-34) U/L Alkaline Phosphatase 89 (38-126) U/L Troponin I (0.000-0.034) ng/mL Total Protein 6.4 (6.3-8.2) g/dL Albumin 4.2 (3.5-5.0) g/dL Influenza Type A (PCR) Not Detected (Not Detectd) Influenza Type B (PCR) Not Detected (Not Detectd) RSV (PCR) Not Detected (Not Detectd) SARS-CoV-2 (PCR) Not Detected (Not Detectd) 07/21/24 07/21/24 Range/Units 14:34 14:34 WBC (3.8-10.6) k/uL RBC (3.80-5.40) m/uL Hgb (11.4-16.0) gm/dL Hct (34.0-46.0) % MCV (80.0-100.0) fL MCH (25.0-35.0) pg MCHC (31.0-37.0) g/dL RDW (11.5-15.5) % Plt Count (150-450) k/uL MPV Neutrophils % % Lymphocytes % % Monocytes % % Eosinophils % % Basophils % % Neutrophils # (1.3-7.7) k/uL Lymphocytes # (1.0-4.8) k/uL Monocytes # (0-1.0) k/uL Eosinophils # (0-0.7) k/uL Basophils # (0-0.2) k/uL PT 10.5 (10.0-12.5) sec INR 0.9 (<1.2) APTT 19.1 L (22.0-30.0) sec Sodium (137-145) mmol/L Potassium (3.5-5.1) mmol/L Chloride (98-107) mmol/L Carbon Dioxide (22-30) mmol/L Anion Gap mmol/L BUN (7-17) mg/dL Creatinine (0.52-1.04) mg/dL Est GFR (CKD-EPI)AfAm (>60 ml/min/1.73 sqM) Est GFR (CKD-EPI)NonAf (>60 ml/min/1.73 sqM) Glucose (74-99) mg/dL Calcium (8.4-10.2) mg/dL Magnesium (1.6-2.3) mg/dL Total Bilirubin (0.2-1.3) mg/dL AST (14-36) U/L ALT (4-34) U/L Alkaline Phosphatase (38-126) U/L Troponin I 0.015 (0.000-0.034) ng/mL Total Protein (6.3-8.2) g/dL Albumin (3.5-5.0) g/dL Influenza Type A (PCR) (Not Detectd) Influenza Type B (PCR) (Not Detectd) RSV (PCR) (Not Detectd) SARS-CoV-2 (PCR) (Not Detectd) - EKG Data -: EKG Interpreted by Me EKG Comments: EKG taken at 13: 42 showing sinus tachycardia with occasional PVCs. Ventricular rate 105, IL interval 131, QRS duration 85, QT/QTc 321/382. - Radiology Data Radiology results: report reviewed, image reviewed Disposition Clinical Impression: Fall, Subdural hematoma, acute, Laceration Disposition: OTHER INSTITUTION NOT DEFINED Condition: Stable Referrals: Jose Lucas MD [Primary Care Provider] - 1-2 days Time of Disposition: 15:04 - Out of Hospital Transfer - Req. Specs Out of Hospital Transfer - Requested Specifics: Other Emergency Center ([facility])
--- NOTE | 2024-07-21 14:52 | CT ---
EXAMINATION TYPE: CT brain cspine wo con CT DLP: 1414.4 mGycm, Automated exposure control for dose reduction was used. DATE OF EXAM: 07/21/2024 2:28 PM COMPARISON: None.. CLINICAL INDICATION:Female, 83 years old with history of fall; FALL TECHNIQUE: Brain: Multiple axial CT images of the brain were obtained without IV contrast. Cspine: Axial CT images from the skull base to the inferior aspect of T2 we obtained without intraven ous contrast. Coronal and sagittal reformatted images were also reviewed. FINDINGS: Brain: Extra-axial spaces: Hyperdense fluid along the left frontal and temporal convexity measuring up to 4 mm in thickness. Ventricular system: Within normal limits Cerebral parenchyma: No acute intraparenchymal hemorrhage or mass effect. Encephalomalacia identifie d within the left frontal lobe from remote injury. The polanco-white junction is well differentiated. Sc attered hypoattenuating areas are seen within the periventricular subcortical white matter. Cerebellum: Unremarkable. Mass effect: No evidence of midline shift. Intracranial vasculature: Atherosclerotic calcifications of the intracranial vessels. Soft tissues: Acute right parietal scalp hematoma with single focus of soft tissue gas consistent wit h laceration. This measures up to 1.2 cm in thickness. Calvarium/osseous structures: No depressed skull fracture. Paranasal sinuses and mastoid air cells: The left mastoid air cells are clear. Partial opacification of the right mastoid air cells and middle ear. Moderate mucosal thickening in the left sphenoid sinus . Aplasia of the bilateral frontal sinuses. Visualized orbits: Bilateral aphakia Cervical spine: Fracture: None. Osseous structures: Multilevel degenerative disc disease changes with endplate spurring and disc oste ophyte complex's. Vertebral alignment: Within normal limits. Spinal canal/Neural Foramina: Disc osteophyte complexes at C4-C5, C5-C6, C6-C7 with at least mild spi nal canal stenosis. Facet joint uncovertebral joint arthropathy scattered throughout the cervical spi ne with varying degrees of neural foraminal stenosis. Neck soft tissues: Prevertebral soft tissues are within normal limits. Other: The airway is patent. Right apical linear scarring. Right carotid bulb calcification. IMPRESSION: 1. Acute left subdural hematoma overlying the left frontal and temporal convexities. No midline shif t. 2. Nonspecific white matter changes, likely secondary to chronic small vessel ischemic disease. 3. Acute right parietal scalp hematoma with laceration. 4. Right mastoid effusion with opacification of the middle ear. 5. No evidence of cervical spine fracture. 6. Mild to moderate multilevel degenerative disc disease. Findings called to and discussed FORTUNATO Grubbs with at 2:50 PM on 07/21/2024. [facility], , 07/21/2024 2:50 PM
[2024-07-21 14:55] LABS: Basophils % (A) 0 %; Eosinophils % (A) 0 %; HCT 37.2 % (34.0-46.0); HGB 12.2 gm/dL (11.4-16.0); Lymphocytes # (A) 0.6 k/uL (1.0-4.8); Lymphocytes % (A) 3 %; MCHC 32.8 g/dL (31.0-37.0); MCV 94.6 fL (80.0-100.0); Mean Platelet Volume 8.6; Monocytes % (A) 5 %; Neutrophils # (A) 17.3 k/uL (1.3-7.7); Neutrophils % (A) 91 %; Platelet Count 276 k/uL (150-450); RBC 3.93 m/uL (3.80-5.40); RDW 13.3 % (11.5-15.5); WBC 18.9 k/uL (3.8-10.6)
[2024-07-21 15:04] LABS: ALT 19 U/L (4-34); AST 28 U/L (14-36); African American GFR (CKD) >90 (>60 ml/min/1.73 sqM); Albumin 4.2 g/dL (3.5-5.0); Alkaline Phosphatase 89 U/L (38-126); Anion Gap 1 mmol/L; Blood Urea Nitrogen 25 mg/dL (7-17); Calcium 10.1 mg/dL (8.4-10.2); Carbon Dioxide 28 mmol/L (22-30); Chloride 106 mmol/L (98-107); Glucose 118 mg/dL (74-99); Magnesium 1.8 mg/dL (1.6-2.3); Non-African American GFR(CKD) 86 (>60 ml/min/1.73 sqM); Potassium 3.7 mmol/L (3.5-5.1); Sodium 135 mmol/L (137-145); Total Bilirubin 0.4 mg/dL (0.2-1.3); Total Protein 6.4 g/dL (6.3-8.2)
[2024-07-21] MEDS: levETIRAcetam IV 500 MG/5 ML VIAL IVP STA (15:04)
[2024-07-21 15:08] LABS: INR 0.9 (<1.2); Prothrombin Time 10.5 sec (10.0-12.5)
[2024-07-21] MEDS: DIPH,PERTUS(ACELL)TETVAC-LF 0.5 ML VIAL IM ONE (15:08)
[2024-07-21 15:17] LABS: Partial Thromboplastin Time 19.1 sec (22.0-30.0)
[2024-07-21] MEDS: TRANEXAMIC 1,000 MG/100ML-NACL 1,000 MG in SALINE 1 100ML.BAG IVPB ONE (15:48)
--- NOTE | 2024-07-21 15:50 | XR ---
EXAMINATION TYPE: XR shoulder complete RT DATE OF EXAM: 07/21/2024 3:43 PM COMPARISON: None. CLINICAL INDICATION: Female, 83 years old with history of pain s/p fall, TECHNIQUE: XR shoulder complete RT view(s) obtained. FINDINGS: The humeral head articulates with the glenoid. The acromio-clavicular junction is normal. There may be a fracture of the acromion at the acromioclavicular junction. There is mild elevation of the distal clavicle relation to the acromion. Mild separation may be present A follow up study can be performed 7-10 days from acute trauma for continued pain. MRI can be perfor med if soft tissue evaluation would be of benefit. IMPRESSION: 1. Suspected fracture of the acromion at the acromioclavicular junction with mild elevation of the cl avicle in relation to the acromion. AC joint separation should also be considered. [facility], , 07/21/2024 3:48 PM
--- NOTE | 2024-07-21 15:56 | XR ---
EXAMINATION TYPE: XR chest 2V DATE OF EXAM: 07/21/2024 3:43 PM COMPARISON: 12/09/2013 CLINICAL INDICATION: Female, 83 years old with history of syncope, TECHNIQUE: XR chest 2V view(s) obtained. FINDINGS: The heart size is enlarged. There may be some fullness in the right hilar region. Follow-up for unde rlying mass is recommended. The pulmonary vasculature is normal. The lungs are clear. No pneumothorax is evident. There is a second rib fracture. There is depression of the acromion in relation to the distal clavicle compatible with partial separa tion. Additionally, there is fracture or avulsion from the superior acromion on the right. IMPRESSION: 1. No acute pulmonary process. 2. Right Acromial fracture with some degree of separation. 3. Right third rib fracture. No pneumothorax identified. 4. Cardiomegaly. 5. There may be right hilar mass. Additional workup is recommended. [facility], , 07/21/2024 3:54 PM
[2024-07-21 16:21] VITALS: BP 146/82; PULSE 95; RESP 17; TEMP 98.1
== END 2024-07-21 16:04 | disposition other institution (70) ==
LOC: EC 13:27
DX: S01.01XA Laceration without foreign body of scalp, initial encounter (principal); S06.5X0A Traumatic subdural hemorrhage without loss of consciousness, initial encounter; E78.5 Hyperlipidemia, unspecified; I48.91 Unspecified atrial fibrillation; I10 Essential (primary) hypertension; Z91.041 Radiographic dye allergy status; Z23 Encounter for immunization; W10.9XXA Fall (on) (from) unspecified stairs and steps, initial encounter
CPT/HCPCS: 99291 ×2; 90471 ×2; 96374 ×2; 96375 ×2; 12001 ×2; 36415; 93005; 80053; 83735; 84484; 85025; 85610; 85730; 87636; 73030; 71046; 72125; 70450; 90715; J1953